=== PATIENT | female | born 1940 | race Caucasian/White ===

== ENCOUNTER 2016-04-05 10:34 | Outpatient (CLI) | payer MEDICARE, BC ==
[~2016-04-05] VITALS: Ht 167.6 cm; Wt 63.6 kg
[2016-04-05] VITALS (8 sets, daily range): BP systolic 93–128; BP diastolic 51–77; PULSE 55–70; TEMP 98.4
[~2016-04-05 10:34] MED LIST: ALDACTONE 25MG25 M1 PO; AZO-CRANBERRY450 MG PO; BETAPACE 120MG120 MG PO; CEPHALEXIN500 M1 PO; CLARITIN 1010 MG/TAB PO; COUMADIN 1MG1 MG/TAB PO; COUMADIN 3MG3 MG/TAB PO; COZAAR 25MG25 MG/TAB PO; EXELON PAT4.6 MG/24 TD; EXELON9.5 MG/24 TD; KLOR-CON M2020 MEQ PO; LASIX 40MG TABL40 MG PO; MAG-OX 400400 MG/TAB PO; MULTI VITAMINS1 TAB PO; NORCO 325 MG-51 TAB PO; PROTONIX 40MG T40 MG PO; QVAR0.04 MG/AC IH; SYNTHROID0.088 MG/T PO; SYNTHROID0.125 MG/T PO; TOPROL XL 50MG50 MG PO; XOPENEX HF0.045 MG/A IH; ZOCOR 40MG40 MG PO; ZYLOPRIM 100MG100 MG PO
[2016-04-05] MEDS ORDERED: MACRODANTIN100 PO (10:59)
[2016-04-05] MEDS ORDERED: NORCO 325 MG-7.1 TAB PO (11:02)
[2016-04-05 11:22] LABS: INR 1.5 (0.8-3.0); PROTHROMBIN TIME 16.8 SECONDS (9.7-12.8)
== END 2016-04-05 15:25 | disposition home or self-care (01) ==
LOC: EUO 10:34
PROVIDERS: Family Medicine
DX: M48.54XG Collapsed vertebra, not elsewhere classified, thoracic region, subsequent encounter for fracture with delayed healing (principal)
CPT/HCPCS: C1713; J2250; J3010; J7120

== ENCOUNTER → 2016-08-08 | Outpatient (CLI) | payer MEDICARE, BC ==
[~2016-08-08] MED LIST changes: +MACRODANTIN100 PO; +NORCO 325 MG-7.1 TAB PO
== END ==
LOC: MC.RAD 10:55
DX: Z12.31 Encounter for screening mammogram for malignant neoplasm of breast (principal)

== ENCOUNTER → 2016-10-21 | Outpatient (CLI) | payer MEDICARE, BC | LOC: MHCPAIN 09:07 | DX: G89.29 Other chronic pain (principal); M47.817 Spondylosis without myelopathy or radiculopathy, lumbosacral region; M47.814 Spondylosis without myelopathy or radiculopathy, thoracic region | CPT/HCPCS: G0463 ==

== ENCOUNTER 2016-12-02 11:15 | Outpatient (RCR) | payer MEDICARE, BC | END 2016-12-09 16:31 | LOC: WSPT 11:15 | DX: M47.814 Spondylosis without myelopathy or radiculopathy, thoracic region (principal); M47.817 Spondylosis without myelopathy or radiculopathy, lumbosacral region; M79.1 Myalgia; G89.29 Other chronic pain | CPT/HCPCS: G8978-GP; G8979-GP ==

== ENCOUNTER → 2017-03-24 | Outpatient (CLI) | payer MEDICARE, BC | LOC: COL.RAD 08:23 | DX: H74.8X1 Other specified disorders of right middle ear and mastoid (principal) ==

== ENCOUNTER 2017-05-12 13:15 | Outpatient (RCR) | payer MEDICARE, BC | END 2017-07-06 | disposition home or self-care (01) | LOC: MKS.ESL.PT | DX: R42 Dizziness and giddiness (principal); Z91.81 History of falling | CPT/HCPCS: G0283-GP; G8990-GP; G8991-GP ==

== ENCOUNTER 2018-02-11 11:10 | Inpatient (IN) | payer MEDICARE, BC ==
[~2018-02-11] VITALS: Ht 165.1 cm; Wt 56.1 kg
[2018-02-11 12:02] LABS: BASO % 0.2 % (0.0-2.0); EOS % 0.3 % (0-4.0); GRAN # 7.5 (1.4-6.5); GRAN % 80.5 % (42.2-75.2); HEMATOCRIT 38.9 % (37.0-47.0); HEMOGLOBIN 12.4 g/dl (12.5-16.0); LYMPH # 1.1 (1.2-3.4); LYMPH % 11.8 % (20.0-51.0); MEAN CELL VOLUME 95 fl (80.0-100.0); MEAN CORPUSCULAR HGB CONC 32 g/dl (33.0-37.0); MEAN PLATELET VOLUME 9.1 fl (7.4-10.4); MONO # 0.6 (0.1-0.6); MONO % 6.4 % (1.7-9.3); PLATELET COUNT 269 K/mm3 (130-400); REDCELL DISTRIBUTION WIDTH-CV 15.6 % (11.5-14.5)
[2018-02-11 12:08] LABS: MEAN CORPUSCULAR HEMOGLOBIN 31 pg (27.0-31.0)
[2018-02-11 12:10] LABS: INR 1.7 (0.8-3.0); PROTHROMBIN TIME 19.1 SECONDS (9.7-12.8)
[2018-02-11 12:12] LABS: ALBUMIN 3.1 gm/dL (3.5-5.0); BILIRUBIN,TOTAL 0.7 mg/dL (0.0-1.0); CREATININE, serum 0.72 mg/dL (0.52-1.25); POTASSIUM 3.9 mmol/L (3.4-5.0); TOTAL PROTEIN 6.7 gm/dL (6.4-8.2)
[2018-02-11] MEDS ORDERED: CRANBERRY 100 M1 SGL PO (12:27)
[2018-02-11] MEDS ORDERED: TYLENOL 8 HR PO (12:30)
[2018-02-11] MEDS ORDERED: BETAPACE 120MG120 MG PO (12:31)
[2018-02-11] MEDS ORDERED: PROTONIX 40MG T40 MG PO (12:31)
[2018-02-11] MEDS ORDERED: TOPROL XL 50MG50 MG PO (12:32)
[2018-02-11] MEDS ORDERED: COZAAR 25MG25 MG/TAB PO (12:33)
[2018-02-11] MEDS ORDERED: ZYLOPRIM 100MG100 MG PO (12:34)
[2018-02-11] MEDS ORDERED: COUMADIN 1MG1 MG/TAB PO (12:34)
[2018-02-11] MEDS ORDERED: CLARITIN 1010 MG/TAB PO (12:35)
[2018-02-11] MEDS ORDERED: NAMENDA 10MG TA10 MG PO (12:46)
[2018-02-11] MEDS ORDERED: MEGACE ORAL40 MG/ML PO (12:47)
[2018-02-11] MEDS ORDERED: MAG-OX 400400 MG/TAB PO (12:48)
[2018-02-11] MEDS ORDERED: SYNTHROID0.1 MG/TAB PO (12:48)
[2018-02-11 14:00] VITALS: BP 101/59; PULSE 79; TEMP 97.6
[2018-02-11 15:18] VITALS: BP 108/68; PULSE 75; TEMP 97.9
[2018-02-11 20:24] VITALS: BP 122/73; PULSE 74; TEMP 97.9
[2018-02-11 20:31] LABS: COLLECTION METHOD CLEAN CATCH
[2018-02-11 20:40] LABS: MUCOUS Present /lpf; PH 6 (5-8); SQUAMOUS EPITHELIAL 0-2 /hpf; URINE APPEARANCE Cloudy; URINE BACTERIA Rare /hpf; URINE BILIRUBIN Negative (NEGATIVE); URINE BLOOD Negative (NEGATIVE); URINE COLOR Amber; URINE GLUCOSE Negative (NEGATIVE); URINE KETONE Trace (NEGATIVE); URINE LEUKOCYTE ESTERASE Negative (NEGATIVE); URINE NITRATE Negative (NEGATIVE); URINE PROTEIN(semi-quant) 1+ (NEGATIVE); URINE UROBILINOGEN >=4.0 mg/dL (NEGATIVE)
[2018-02-12] VITALS (12 sets, daily range): BP systolic 100–133; BP diastolic 56–84; PULSE 70–100; TEMP 96–98.1
[2018-02-12 06:19] LABS: BASO # 0.1 (0.0-0.2); BASO % 0.5 % (0.0-2.0); EOS # 0.3 (0.0-0.7); EOS % 2.4 % (0-4.0); GRAN # 8.2 (1.4-6.5); GRAN % 76.4 % (42.2-75.2); HEMATOCRIT 39.8 % (37.0-47.0); HEMOGLOBIN 12.8 g/dl (12.5-16.0); LYMPH # 1.5 (1.2-3.4); MEAN CELL VOLUME 95 fl (80.0-100.0); MEAN CORPUSCULAR HEMOGLOBIN 31 pg (27.0-31.0); MEAN CORPUSCULAR HGB CONC 32 g/dl (33.0-37.0); MEAN PLATELET VOLUME 9.2 fl (7.4-10.4); MONO # 0.7 (0.1-0.6); MONO % 6.2 % (1.7-9.3); PLATELET COUNT 287 K/mm3 (130-400); RED BLOOD COUNT 4.19 M/mm3 (4.10-5.30); REDCELL DISTRIBUTION WIDTH-CV 15.6 % (11.5-14.5)
[2018-02-12 06:24] LABS: INR 1.4 (0.8-3.0); PROTHROMBIN TIME 16.1 SECONDS (9.7-12.8)
[2018-02-12 06:36] LABS: CALCIUM 8.7 mg/dL (8.4-10.2); CREATININE, serum 0.65 mg/dL (0.52-1.25); MAGNESIUM 1.9 mg/dL (1.6-2.3); POTASSIUM 4.1 mmol/L (3.4-5.0)
[2018-02-12 07:06] LABS: THYROID STIMULATING HORMONE 2.47 uIU/mL (0.465-4.680)
[2018-02-13 00:39] VITALS: BP 107/70; PULSE 77; TEMP 98.3
[2018-02-13 04:52] VITALS: BP 104/60; PULSE 73; TEMP 98.9
[2018-02-13 06:30] LABS: HEMATOCRIT 37.8 % (37.0-47.0); HEMOGLOBIN 12.2 g/dl (12.5-16.0)
[2018-02-13 06:35] LABS: INR 1.2 (0.8-3.0); PROTHROMBIN TIME 13.1 SECONDS (9.7-12.8)
[2018-02-13 06:43] LABS: CALCIUM 8.3 mg/dL (8.4-10.2); CREATININE, serum 0.71 mg/dL (0.52-1.25); POTASSIUM 3.9 mmol/L (3.4-5.0)
[2018-02-13 07:30] VITALS: BP 105/65; PULSE 84; TEMP 98.7
[2018-02-13 11:21] VITALS: BP 114/64; PULSE 87; TEMP 96.8
[2018-02-13 16:09] VITALS: BP 97/49; PULSE 83; TEMP 97.3
[2018-02-13 20:52] VITALS: BP 128/74; PULSE 79; TEMP 97.7
[2018-02-14 00:50] VITALS: BP 124/77; PULSE 84; TEMP 97.7
[2018-02-14 03:42] VITALS: BP 114/68; PULSE 79; TEMP 97.6
[2018-02-14 04:05] LABS: HEMOGLOBIN 11.7 g/dl (12.5-16.0)
[2018-02-14 04:10] LABS: HEMATOCRIT 35.4 % (37.0-47.0)
[2018-02-14 04:13] LABS: INR 1.2 (0.8-3.0); PROTHROMBIN TIME 13.6 SECONDS (9.7-12.8)
[2018-02-14 04:16] LABS: ALBUMIN 2.7 gm/dL (3.5-5.0); BILIRUBIN,TOTAL 1.1 mg/dL (0.0-1.0); CALCIUM 8.5 mg/dL (8.4-10.2); CREATININE, serum 0.77 mg/dL (0.52-1.25); MAGNESIUM 1.8 mg/dL (1.6-2.3); POTASSIUM 3.8 mmol/L (3.4-5.0); TOTAL PROTEIN 5.9 gm/dL (6.4-8.2)
[2018-02-14 04:31] LABS: TROPONIN-I 0.84 ng/mL (0.000-0.034)
[2018-02-14 07:50] VITALS: BP 114/78; PULSE 77; TEMP 98.1
[2018-02-14 10:55] VITALS: BP 111/73; PULSE 85; TEMP 97.4
[2018-02-14 16:06] VITALS: BP 109/61; PULSE 74; TEMP 97.6
[2018-02-14 19:23] VITALS: BP 105/60; PULSE 76; TEMP 98.1
[2018-02-15 04:04] VITALS: BP 105/45; BP 108/63; PULSE 64; PULSE 72; TEMP 98.3; TEMP 98.6
[2018-02-15 05:44] LABS: BASO % 0.4 % (0.0-2.0); EOS # 0.1 (0.0-0.7); EOS % 2.1 % (0-4.0); GRAN # 4.7 (1.4-6.5); GRAN % 70.3 % (42.2-75.2); HEMOGLOBIN 11.5 g/dl (12.5-16.0); LYMPH # 1.2 (1.2-3.4); LYMPH % 18.4 % (20.0-51.0); MEAN CELL VOLUME 94 fl (80.0-100.0); MEAN CORPUSCULAR HEMOGLOBIN 31 pg (27.0-31.0); MEAN CORPUSCULAR HGB CONC 32 g/dl (33.0-37.0); MEAN PLATELET VOLUME 9.5 fl (7.4-10.4); MONO # 0.6 (0.1-0.6); MONO % 8.5 % (1.7-9.3); PLATELET COUNT 242 K/mm3 (130-400); RED BLOOD COUNT 3.77 M/mm3 (4.10-5.30); REDCELL DISTRIBUTION WIDTH-CV 15.8 % (11.5-14.5)
[2018-02-15 05:51] LABS: HEMATOCRIT 35.5 % (37.0-47.0)
[2018-02-15 05:59] LABS: INR 1.3 (0.8-3.0)
[2018-02-15 06:00] LABS: CALCIUM 8.6 mg/dL (8.4-10.2); CREATININE, serum 0.67 mg/dL (0.52-1.25); POTASSIUM 3.5 mmol/L (3.4-5.0)
[2018-02-15 08:22] VITALS: BP 129/88; PULSE 87; TEMP 97.9
[2018-02-15 12:55] VITALS: BP 99/53; PULSE 63; TEMP 97.7
[2018-02-15] MEDS ORDERED: COUMADIN 1MG1 MG/TAB PO (12:58)
[2018-02-15] MEDS ORDERED: VITAMINC1000TA PO (13:00)
[2018-02-15] MEDS ORDERED: CEFTIN 250250 MG/TAB PO (13:00)
[2018-02-15] MEDS ORDERED: DUO-KAPS1 CAP PO (13:00)
[2018-02-15] MEDS ORDERED: LASIX 20MG TABL20 MG PO (13:01)
[2018-02-15] MEDS ORDERED: ASPIRIN 81M81 MG/TA2 PO (13:01)
[2018-02-15 13:42] VITALS: BP 99/53; PULSE 63; TEMP 97.7
== END 2018-02-15 14:42 | DRG 480 ==
LOC: COL.ER 11:10 → SURG 12:08
PROVIDERS: Emergency Medicine; Internal Medicine; Nurse Practitioner Family; Orthopaedic Surgery; Physician Assistant
PROC: 0QS736Z Reposition Left Upper Femur with Intramedullary Internal Fixation Device, Percutaneous Approach (ICD-10-PCS; principal; 2018-02-12 16:00)
DX: S72.012A Unspecified intracapsular fracture of left femur, initial encounter for closed fracture (principal); I50.23 Acute on chronic systolic (congestive) heart failure; N39.0 Urinary tract infection, site not specified; Z68.1 Body mass index [BMI] 19.9 or less, adult; I47.2 Ventricular tachycardia; I42.0 Dilated cardiomyopathy; Z66 Do not resuscitate; I48.2 Chronic atrial fibrillation; W18.30XA Fall on same level, unspecified, initial encounter; I11.0 Hypertensive heart disease with heart failure; R63.4 Abnormal weight loss; F03.90 Unspecified dementia, unspecified severity, without behavioral disturbance, psychotic disturbance, mood disturbance, and anxiety; Z95.810 Presence of automatic (implantable) cardiac defibrillator; Z79.01 Long term (current) use of anticoagulants; I95.9 Hypotension, unspecified; I08.1 Rheumatic disorders of both mitral and tricuspid valves; R13.10 Dysphagia, unspecified; B96.89 Other specified bacterial agents as the cause of diseases classified elsewhere
CPT/HCPCS: 99223-AI; 99232-AI; 99233-AI; 99239; A9284; C1713; J0690; J1650; J1885; J1940; J2250; J2270; J2370; J7050; J7120

== ENCOUNTER → 2018-03-10 | Outpatient (REF) ==
[~2018-03-10] MED LIST changes: +ASPIRIN 81M81 MG/TA2 PO; +CEFTIN 250250 MG/TAB PO; +CRANBERRY 100 M1 SGL PO; +DUO-KAPS1 CAP PO; +LASIX 20MG TABL20 MG PO; +MEGACE ORAL40 MG/ML PO; +NAMENDA 10MG TA10 MG PO; +SYNTHROID0.1 MG/TAB PO; +TYLENOL 8 HR PO; +VITAMINC1000TA PO
[2018-03-10 13:34] LABS: COLLECTION METHOD CLEAN CATCH
[2018-03-10 14:26] LABS: AMORPHOUS CRYSTAL Present /uL; MUCOUS Present /lpf; PH 7 (5-8); URINE APPEARANCE Cloudy; URINE BACTERIA None Seen /hpf; URINE BILIRUBIN Negative (NEGATIVE); URINE BLOOD Negative (NEGATIVE); URINE CALCIUM OXALATE CRYSTAL Present /hpf; URINE COLOR Amber; URINE GLUCOSE Negative (NEGATIVE); URINE KETONE 1+ (NEGATIVE); URINE LEUKOCYTE ESTERASE Negative (NEGATIVE); URINE NITRATE Negative (NEGATIVE); URINE PROTEIN(semi-quant) Negative (NEGATIVE); URINE UROBILINOGEN Negative (NEGATIVE)
== END ==
LOC: ZCOL.LAB 12:58
PROVIDERS: Family Medicine
DX: N39.0 Urinary tract infection, site not specified (principal)